=== PATIENT | male | born 1980 | race Caucasian/White ===

== ENCOUNTER 2020-09-03 12:57 | Emergency (ER) | payer SELFPAY ==
[2020-09-03 13:01] VITALS: BP 141/88; PULSE 86; RESP 18; TEMP 36.7; O2SAT 100; BMI 25.8
[2020-09-03 13:16] VITALS: BP 141/88; PULSE 86; RESP 18; O2SAT 100
--- NOTE | 2020-09-03 13:22 | XRR_ITS ---
PROCEDURE INFORMATION: Exam: XR Chest Exam date and time: 09/03/2020 1:23 PM Age: 39 years old Clinical indication: Chest pain; Type not specified TECHNIQUE: Imaging protocol: XR of the chest. Views: 1 view. COMPARISON: No relevant prior studies available. FINDINGS: Lungs: Unremarkable. No consolidation. Pleural spaces: Unremarkable. No pleural effusion. No pneumothorax. Heart/Mediastinum: Unremarkable. No cardiomegaly. Bones/joints: Unremarkable. Multiple scattered metallic soft tissue foreign bodies seen in the projection of the epigastric region and the left hemithorax. XR/XR chest 1V portable [id number] IMPRESSION: No acute findings. Metallic soft tissue foreign bodies epigastric and left hemithorax regions.
--- NOTE | 2020-09-03 13:24 | ED_ITS ---
HPI - Chest Pain General: Chief Complaint: Chest Pain Stated Complaint: CHEST PAIN Time Seen by Provider: 09/03/20 13:22 History of Present Illness: HPI narrative: 39-year-old male who started having left-sided arm pain just under his armpit last night around midnight while he was having sexual intercourse but he says his partner was on top and he was not in a push-up type position. He said his left arm felt heavy and felt pain in it and that he thought he had some left upper chest pain his cell phone was so he says he went and found the police and told him he was having chest pain but they arrested him for some marijuana paraphernalia instead. 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 Patient called EMS today they have given him aspirin and gave him 1 nitro and he says that made all the ringing in his ears go away he did have a brief stay in our waiting room by the time he was brought back to room he says all of his discomfort was gone. He denies any heaviness or pressure in his chest he mostly is complaining that his left arm and armpit were painful especially when he tried to lift them up over his head this is been ongoing now for over 12 hours and all symptoms are resolved he did have a little shortness of breath with it. And last night he took some K2 and some Dilaudid that he thought might help with his pain because it was a super aspirin Risk factors include smoking illicit drug use no family history he thinks he supposed to be on blood pressure medication but has not taken any in a while Review of Systems Narrative: General: denies fatigue, fever or chills HEENT: denies ear pain, denies nasal congestion, denies vision changes, denies sore throat Neck: denies masses or pain Resp: denies cough, denies shortness of breath, denies pleuritic pain Cardio: see HPI denies chest pain, denies edema GI: denies abdominal pain, denies N/V/D, denies black/tarry or bloody stools : denies hematuria, denies dysuria Neuro: denies headache, denies dizziness, denies motor or sensory changes Musculoskeletal: denies pain, denies swelling Skin: denies rashes Psych: denies SI or HI Endocrine: denies thyroid symptoms, denies lymphadenopathy all over ROS reviewed and patient [facility] Information: + daily tobacco use daily illicit drug use with meth and marijuiana Physical Exam Narrative: EXAM NARRATIVE: General: a/o/3, no distress Head: atraumatic HEENT: normal eyes, normal conjunctiva, normal hearing, normal external nose, normal mouth, mucous membranes moist Neck: FROM, trachea midline Chest: normal expansion, no gross deformities Resp: normal speech, no retractions, no accessory muscle use, CTA bilaterally Cardio: regular rate and rhythm and no murmur, no peripheral edema, normal peripheral pulses GI: soft, flat non tender, no guarding normal BS : deferred Musculoskeletal: FROM, no pain or gross deformities, patient moves his arm up over his head Neuro: a/o appropriate for age, no gross motor or sensory deficits, CN II-XII grossly intact, normal coordination, normal speech Skin: no rashes, multiple areas on his skin bilateral extremities and anterior posterior torso of picking that are similar to common findings with meth abuse none of them look infected Psych: cooperative, normal mood and effect Course Vital Signs: Vital signs: Vital Signs Temperature 98.0 F 09/03/20 13:01 Pulse Rate 96 09/03/20 14:19 Respiratory Rate 16 09/03/20 14:19 Blood Pressure 132/108 09/03/20 14:19 Pulse Oximetry 100 09/03/20 13:40 MDM - Chest Pain MDM Narrative: Medical decision making narrative: Patient has no current discomfort. His symptoms have been constant since midnight last night he has smoking is a risk factor he does use drug use however EKG looks to have no ST changes or elevation in his troponin was negative I feel we can discharge leanne ent encouraged him to follow-up Try discussing with the patient risk factors for coronary artery disease including blockages drug use atypical type chest pain and that he has risk factors of smoking the drug use as well as uncontrolled hypertension and that he really needs further work-up and/or testing patient says he is going to continue to use drugs and I explained to him he has high risks of coronary artery disease cardiomyopathies valvular disease and/or . Highly encouraged him to follow-up or return if further symptoms I do not feel patient will be compliant Medical Records: Attestation: I reviewed the patient's medical records. Lab Data: Attestation: I reviewed the patient's lab results. Labs: Lab Results 09/03/20 09/03/20 09/03/20 Range/Units 12:15 12:15 12:15 WBC 9.2 (4.0-10.0) 10^3/ uL RBC 4.91 (4.1-5.3) 10^6/u L Hgb 14.7 (11.7-16.6) g/dL Hct 44.4 (42.0-52.0) % MCV 90.4 (80-94) fL MCH 29.9 (28.0-34.0) pg MCHC 33.1 (30.0-36.0) g/dL RDW 12.9 (12.1-15.1) % Plt Count 223 (130-400) 10^3/c mm MPV 11.3 H (7.4-10.4) fL Neut % (Auto) 62.9 % Lymph % (Auto) 22.3 % Schuyler % (Auto) 11.2 % Eos % (Auto) 2.8 % Baso % (Auto) 0.4 % Neut # (Auto) 5.78 (1.8-7.7) 10^3/u L Lymph # (Auto) 2.1 (0.8-4.8) 10^3/u L Schuyler # (Auto) 1.0 H (0.2-0.9) 10^3/u L Eos # (Auto) 0.3 (0.0-0.8) 10^3/u L Baso # (Auto) 0.0 (0.0-0.1) 10^3/u L Nucleated RBC % (a uto) 0 % Nucleated RBCs # 0.0 /100WBC Sodium 141 (136-145) mmol/L Potassium 3.9 (3.5-5.1) mmol/L Chloride 104 (98-107) mmol/L Carbon Dioxide 29 (22-29) mmol/L Anion Gap 11.9 (5-19) BUN 17 (6-20) mg/dL Creatinine 0.8 (0.7-1.2) mg/dL GFR Calculation 106.5 (90-130) mL/min Glucose 61 L (65-115) mg/dL Calculated Osmolal ity 291 (285-295) mOsm/k g Calcium 9.1 (8.5-10.5) mg/dL Total Bilirubin 0.3 (0.15-1.2) mg/dL AST 34 (0-40) U/L ALT 33 (0-41) U/L Alkaline Phosphata se 64 (40-130) IU/L Creatine Kinase 418 H* (39-308) U/L Troponin T Baselin e 9 (0-15) ng/L Troponin T 120 Min [place] (0-15) ng/L Delta Troponin T (0-10) ABS# Total Protein 6.8 (6.6-8.7) g/dL Albumin 4.3 (3.5-5.2) g/dL Globulin 2.5 (1.3-4.6) g/dL 09/03/20 Range/Units 14:15 WBC (4.0-10.0) 10^3/ uL RBC (4.1-5.3) 10^6/u L Hgb (11.7-16.6) g/dL Hct (42.0-52.0) % MCV (80-94) fL MCH (28.0-34.0) pg MCHC (30.0-36.0) g/dL RDW (12.1-15.1) % Plt Count (130-400) 10^3/c mm MPV (7.4-10.4) fL Neut % (Auto) % Lymph % (Auto) % Schuyler % (Auto) % Eos % (Auto) % Baso % (Auto) % Neut # (Auto) (1.8-7.7) 10^3/u L Lymph # (Auto) (0.8-4.8) 10^3/u L Schuyler # (Auto) (0.2-0.9) 10^3/u L Eos # (Auto) (0.0-0.8) 10^3/u L Baso # (Auto) (0.0-0.1) 10^3/u L Nucleated RBC % (a uto) % Nucleated RBCs # /100WBC Sodium (136-145) mmol/L Potassium (3.5-5.1) mmol/L Chloride (98-107) mmol/L Carbon Dioxide (22-29) mmol/L Anion Gap (5-19) BUN (6-20) mg/dL Creatinine (0.7-1.2) mg/dL GFR Calculation (90-130) mL/min Glucose (65-115) mg/dL Calculated Osmolal ity (285-295) mOsm/k g Calcium (8.5-10.5) mg/dL Total Bilirubin (0.15-1.2) mg/dL AST (0-40) U/L ALT (0-41) U/L Alkaline Phosphata se (40-130) IU/L Creatine Kinase (39-308) U/L Troponin T Baselin e (0-15) ng/L Troponin T 120 Min [place] 7.60 (0-15) ng/L Delta Troponin T -1.40 L (0-10) ABS# Total Protein (6.6-8.7) g/dL Albumin (3.5-5.2) g/dL Globulin (1.3-4.6) g/dL EKG Data^: EKG 1: EKG interpretation date: 09/03/20 EKG interpretation time: 13:16 Interpretation: NSR, rate 88, no acute st changes RBBB, Left axis Discharge Plan Discharge Patient Disposition: Home Clinical Impression: Atypical chest pain Condition: Stable Prescriptions: No Action hydromorphone 4 mg Tablet 2 mg PO ONCE RF: 0 Discharge Orders: Discharge ED (Routine); Ordered 09/03/20 Ordered By: Michelle Hong Discharge Diet: Usual diet Patient Instructions: Chest Pain (ED) Activity Restrictions/Additional Instructions: Take a daily aspirin stop your drug use recommend he also stop smoking follow-up with your provider you will need further work-up and/or testing to determine a cause of your chest pain that may involve a stress test and/or ultrasound of your heart in the meantime return the emergency department for further chest discomfort left arm pain or numbness shortness of breath changes or worsening of symptoms Make sure you take your blood pressure medication Thank you for choosing [facility] for your healthcare needs today. Please realize this is an emergency room and that we are providing you with a medical screening exam and this may not be complete and all inclusive of all the testing and or work up that you may need to determine your ailment or severity of your illness. It is very important that you follow up as instructed or that you return to the Emergency Department should you have concerns or if your condition changes or worsens in any way. Coding Level of Care Code ED Regulatory Services Consultant for Chary Kearns
[2020-09-03 13:33] LABS: Basophils % 0.4 %; Eosinophils # 0.3 10^3/uL (0.0-0.8); Eosinophils % 2.8 %; Hematocrit 44.4 % (42.0-52.0); Hemoglobin 14.7 g/dL (11.7-16.6); Lymphocytes # 2.1 10^3/uL (0.8-4.8); Lymphocytes % 22.3 %; Mean Corpuscular HGB Conc 33.1 g/dL (30.0-36.0); Mean Corpuscular Hemoglobin 29.9 pg (28.0-34.0); Mean Corpuscular Volume 90.4 fL (80-94); Mean Platelet Volume 11.3 fL (7.4-10.4); Monocytes % 11.2 %; Neutrophils # 5.78 10^3/uL (1.8-7.7); Neutrophils % 62.9 %; Nucleated Red Blood Cells % 0 %; Platelet Count 223 10^3/cmm (130-400); Red Blood Count 4.91 10^6/uL (4.1-5.3); Red Cell Distribution Width 12.9 % (12.1-15.1); White Blood Count 9.2 10^3/uL (4.0-10.0)
[2020-09-03 13:40] VITALS: O2SAT 100
[2020-09-03 13:51] LABS: Troponin(5th) Baseline 9 ng/L (0-15)
[2020-09-03 13:55] LABS: Alanine Aminotransferase 33 U/L (0-41); Albumin Level 4.3 g/dL (3.5-5.2); Alkaline Phosphatase 64 IU/L (40-130); Anion Gap 11.9 (5-19); Aspartate Amino Transferase 34 U/L (0-40); Blood Urea Nitrogen 17 mg/dL (6-20); Calcium 9.1 mg/dL (8.5-10.5); Carbon Dioxide 29 mmol/L (22-29); Chloride 104 mmol/L (98-107); Creatinine Clr Calc Pharmacy 123.5513; Globulin 2.5 g/dL (1.3-4.6); Glomerular Filtration Rate 106.5 mL/min (90-130); Glucose 61 mg/dL (65-115); Osmolality Calculated 291 mOsm/kg (285-295); Potassium 3.9 mmol/L (3.5-5.1); Sodium 141 mmol/L (136-145); Total Bilirubin 0.3 mg/dL (0.15-1.2); Total Protein 6.8 g/dL (6.6-8.7)
[2020-09-03 14:00] LABS: Creatine Phosphokinase 418 U/L (39-308)
[2020-09-03 14:19] VITALS: BP 132/108; PULSE 96; RESP 16
[2020-09-03 15:56] VITALS: BP 132/85; PULSE 91; RESP 28
--- NOTE | 2020-09-03 16:09 | ECG_ITS ---
[facility] Test Date: 2020-09-03 Pat Name: Rene Jarrell Iii Department: Room: Gender: Male Resident Athletic Trainer: : 1980 Requested By: Michelle Villasenor Order Number: [id number] Alex MD: Meeta Hoffmann M.D. Measurements Intervals [place] Rate: 88 P: 37 MT: 164 QRS: -31 QRSD: 100 T: 54 QT: 372 QTc: 452 Interpretive Statements SINUS RHYTHM LEFT AXIS DEVIATION [QRS AXIS < -30] INCOMPLETE RIGHT BUNDLE BRANCH BLOCK [90+ ms QRS DURATION, TERMINAL R IN V1/V2, 40+ ms S IN I/aVL/V4/V5/V6] No previous ECG available for comparison Electronically Signed On 09-05-2020 9:35:14 CDT by Meeta Hoffmann M.D. [id number]
== END 2020-09-03 16:04 | disposition home or self-care (01) ==
PROVIDERS: Emergency Provider Emergency Medicine
DX: R07.89 Other chest pain (principal); F17.210 Nicotine dependence, cigarettes, uncomplicated
CPT/HCPCS: 36415; 71045; 80053; 82550; 84484; 85025; 93005; 99284

== ENCOUNTER 2021-04-13 22:54 | Emergency (ER) | payer SELFPAY ==
[2021-04-13 22:57] VITALS: BP 171/124; PULSE 80; RESP 18; TEMP 36.6; O2SAT 100; BMI 27.3
[2021-04-13 23:03] LABS: Add Urine Microscopic? NO; Charge for UA Resulting for Rev
[2021-04-13 23:06] LABS: Bilirubin Urine Neg (Negative); Blood Urine Neg (Negative); Glucose Urine UA Norm (Normal); Ketones Urine Negative (Negative); Leukocyte Esterase Urine Negative (Negative); Nitrate Urine Negative (Negative); Protein Urine Neg (Negative); Urine Appearance Clear (CLEAR); Urine Color Yellow (Yellow); Urobilinogen Urine Norm (Negative); pH Urine 6.5 (5-7)
[2021-04-13 23:15] LABS: Amphetamines Screen Urine Negative (Negative); Barbiturates Screen Urine Negative (Negative); Benzodiazepines Screen Urine Negative (Negative); Cocaine Screen Urine Negative (Negative); Opiate Screen Urine Negative (Negative); PCP Screen Urine Negative (Negative); THC Screen Urine Positive (Negative)
--- NOTE | 2021-04-14 05:46 | ED.C_ITS ---
HPI - Psych General: Chief Complaint: Psychiatric Symptoms Stated Complaint: SI Time Seen by Provider: 04/13/21 22:56 History of Present Illness: HPI Narrative: 40-year-old male who is evaluated in the hallway of the emergency department standing, as he is insisting on leaving. He does this after writing 45 miles in an ambulance from the [facility]. The report EMS gives us, is that he had made suicidal statements there, and is brought here for evaluation. The patient adamantly denies any suicidal ideation or statement history. He states I do not know where they got that . We have no affidavits written, and no court ordered 96-hour hold. Again the patient is evaluated in the hallway, as he is insistent upon leaving stating I know my rights, you should call the police. I do not have to stay here, I am not wanting to hurt myself or anyone else. I can leave when I want to. Clinically, he does not appear intoxicated. He gives no sign of psychosis. MD complaint: other Onset (ago): hour(s) History of same: No Relieving factors: none Review of Systems Narrative: Patient not cooperative Physical Exam Const: COMMON NORMALS: patient oriented x3 and alert GENERAL APPEARANCE: comfortable and well developed; not cooperative, not ill appearing and not frail appearing Neuro: [place] COMA SCALE: document GCS findings [place] coma scale eye opening: Spontaneous [place] coma scale verbal response: Orientated [place] coma scale motor response: Obey commands [place] coma scale total score: 15 COMMON NORMALS: patient oriented x3 SENSORIUM/ORIENTATION: Yes alert Course Vital Signs: Vital signs: Vital Signs Temperature 97.8 F 04/13/21 22:57 Pulse Rate 80 04/13/21 22:57 Respiratory Rate 18 04/13/21 22:57 Blood Pressure 171/124 04/13/21 22:57 Pulse Oximetry 100 04/13/21 22:57 MDM - Psych MDM Narrative: Medical decision making narrative: This is a nonintoxicated male who comes to us by EMS. The report is that he had made a suicidal statement. He denies this. There is no affidavit written to corroborate this story. He is obviously not a danger to himself or anyone else at this point, and essentially was malingering in the correction hoping to get out of having to stay. As he is not any of the above, legally we are not to hold this gentleman, and he was discharged from the emergency room straight to the parking lot. Lab Data: Labs: Lab Results 04/13/21 04/13/21 22:56 22:56 Urine Color Yellow (Yellow) Urine Appearance Clear (CLEAR) Urine pH 6.5 (5-7) Ur Specific Gravit y 1.030 (1.005-1.030) Urine Protein Neg (Negative) Urine Glucose (UA) Norm (Normal) Urine Ketones Negative (Negative) Urine Blood Neg (Negative) Urine Nitrate Negative (Negative) Urine Bilirubin Neg (Negative) Urine Urobilinogen Norm mg/dL mg/dL (Negative) Ur Leukocyte Munira ase Negative (Negative) Urine Opiates Scre en Negative ng/mL ng /mL (Negative) Ur Barbiturates Sc reen Negative ng/mL ng /mL (Negative) Ur Phencyclidine S crn Negative ng/mL ng /mL (Negative) Ur Amphetamines Sc reen Negative ng/mL ng /mL (Negative) U Benzodiazepines Scrn Negative ng/mL ng /mL (Negative) Urine Cocaine Scre en Negative ng/mL ng /mL (Negative) U Marijuana (THC) Screen Positive ng/mL H ng/mL (Negative) Discharge Plan Discharge Patient Disposition: Left Against Medical Advice Clinical Impression: Malingering Prescriptions: No Action hydromorphone 4 mg Tablet 2 mg PO ONCE RF: 0 Patient Instructions: Opioid Safety Coding Level of Care Code ED Senior Technical Program Manager for Chary Fwd Exam Expanded Problem Focused
== END 2021-04-13 23:20 | disposition left against medical advice (07) ==
PROVIDERS: Emergency Provider Emergency Medicine
DX: Z76.5 Malingerer [conscious simulation] (principal)
CPT/HCPCS: 80306; 81003; 99282

== ENCOUNTER 2021-09-11 21:31 | Inpatient (IN) | payer MEDICAID, SELFPAY ==
[2021-09-11 21:46] VITALS: BP 150/100; PULSE 110; RESP 16; TEMP 36.6; O2SAT 100; BMI 26.5
--- NOTE | 2021-09-11 21:50 | W.ED.GENADLT ---
HPI - General Adult General: Chief complaint: Psychiatric Symptoms Stated complaint: Psycological Problems Time Seen by Provider: 09/11/21 21:44 History of Present Illness: HPI: [40]yo patient w/ hx of marijuana and meth use presenting with SI. Patient tells hsi brother just shoot himself with a gun and he is very depressed and would do the same if he doesn't get help. On arrival, the patient is AAOx3 and cooperative with my evaluation. No focal complaints of chest pain, shortness of breath, palpitations, N/V, focal GI/ complaints. Currently denies HI. No complaints of hallucinations. Onset: acute Duration: ongoing Location: home Severity: severe Associated symptoms: Deny chest pain, dyspnea, nausea, rash, palpitations or vomiting Review of Systems Const: Denies: fever(s) or chills Eyes: Denies: change in vision ENMT: Denies: mouth pain Card: Denies: chest pain or palpitations Resp: Denies: dyspnea or non-productive cough GI: Denies: abdominal pain, nausea, vomiting or diarrhea : Denies: dysuria Musc: Denies: extremity pain Skin/Breast: Denies: rash or new lesions Neuro: Denies: weakness in extremities Psych: Reports: depression and suicidal ideation Zacarias/Lymph: Denies: easy bruising PFSH ED PFSH: Medical History No pertinent past medical history Social History (Updated 09/11/21 @ 22:08 by Joanna Garrett MD) Smoking and tobacco status: never smoked Alcohol intake: current Alcohol use comment: +marijuana/meth Substance/Drug Use: never Physical Exam Const: COMMON NORMALS: alert HENMT: COMMON NORMALS: atraumatic HEAD & SCALP: atraumatic MOUTH: moist mucous membranes not abnormal Eye: COMMON NORMALS: EOMs intact bilaterally and conjunctivae normal CONJUNCTIVA: Yes conjunctivae normal Neck/C-Spine: COMMON NORMALS: full ROM and supple Resp: COMMON NORMALS: normal respiratory effort and clear to auscultation bilaterally AUSCULTATION: clear to auscultation bilaterally Cardio: COMMON NORMALS: regular rate RATE: regular rate GI: COMMON NORMALS: Soft to palpation and non-tender PALPATION: Yes Soft to palpation Extremity: COMMON NORMALS: full ROM Neuro: SENSORIUM/ORIENTATION: Yes alert MOTOR EXAM: No Abnormal motor strength present and Other motor observations present (no focal motor deficits) Psych: COMMON NORMALS: speech normal SPEECH: Yes normal speech MOOD & AFFECT: Yes depressed mood Course Vital Signs: Vital signs: Vital Signs Temperature 97.8 F 09/11/21 21:46 Pulse Rate 110 H 09/11/21 21:46 Respiratory Rate 16 09/11/21 21:46 Blood Pressure 150/100 09/11/21 21:46 Pulse Oximetry 100 09/11/21 21:46 MDM - General Adult Medical Decision Making [40]yo patient w/ hx of meth and marijuana use presenting for SI and depression. HDS, exam within normal limit Thoughts are linear and organized, and the patient has no AH/VH, or HI. Clinically the patient displays no overt toxidrome; they are well appearing, with low suspicion for toxic ingestion given history and exam. Symptoms unlikely 2/2 anemia, hypothyroidism, infection, or ICH. Workup: CBC, CMP, Lipase, salicylate/tylenol, UDS Lab findings: wnl, +marijuana/meth in the urine On reassessment, labs and workup wnl. Patient is hemodynamically stable with no acute medical complaints. Case discussed with psychiatric provider Dr. Ritchie at [facility] psych inpatient with recommendation for admission Disposition: Psych Discharge Plan Discharge Clinical Impression: Depression with suicidal ideation Prescriptions: No Action hydromorphone 4 mg Tablet 2 mg PO ONCE 0RF Coding Level of Care Code ED Line Runner for Chg Fwd Exam Comprehensive
[2021-09-11 22:20] LABS: Basophils # 0.1 10^3/uL (0.0-0.1); Basophils % 0.5 %; Eosinophils # 0.2 10^3/uL (0.0-0.8); Eosinophils % 1.5 %; Hematocrit 42.9 % (42.0-52.0); Hemoglobin 14.3 g/dL (11.7-16.6); Lymphocytes # 1.6 10^3/uL (0.8-4.8); Lymphocytes % 16.2 %; Mean Corpuscular HGB Conc 33.3 g/dL (30.0-36.0); Mean Corpuscular Hemoglobin 29.7 pg (28.0-34.0); Mean Platelet Volume 10.6 fL (7.4-10.4); Monocytes # 0.6 10^3/uL (0.2-0.9); Monocytes % 6.1 %; Neutrophils # 7.55 10^3/uL (1.8-7.7); Neutrophils % 75.3 %; Nucleated Red Blood Cells % 0 %; Platelet Count 245 10^3/cmm (130-400); Red Blood Count 4.82 10^6/uL (4.1-5.3); Red Cell Distribution Width 12.8 % (12.1-15.1)
[2021-09-11 22:34] LABS: Alanine Aminotransferase 31 U/L (0-41); Albumin Level 4.4 g/dL (3.5-5.2); Alkaline Phosphatase 62 IU/L (40-130); Anion Gap 13.2 (5-19); Aspartate Amino Transferase 23 U/L (0-40); Blood Urea Nitrogen 9 mg/dL (6-20); Calcium 8.5 mg/dL (8.5-10.5); Carbon Dioxide 25 mmol/L (22-29); Chloride 105 mmol/L (98-107); Globulin 2.6 g/dL (1.3-4.6); Glucose 132 mg/dL (65-115); Lipase 21 U/L (13-60); Osmolality Calculated 289 mOsm/kg (285-295); Potassium 4.2 mmol/L (3.5-5.1); Sodium 139 mmol/L (136-145); Total Bilirubin 0.3 mg/dL (0.15-1.2)
[2021-09-11 22:37] VITALS: BP 154/108; PULSE 111; RESP 17; TEMP 36.8; O2SAT 99
[2021-09-11 22:59] LABS: Acetaminophen < 5.0 ug/mL (10-30); Salicylate < 0.3 mg/dL (3-10)
[2021-09-11 23:16] LABS: Alcohol Level < 10 mg/dL (0-10)
[2021-09-11 23:20] LABS: Amphetamines Screen Urine Positive (Negative); Barbiturates Screen Urine Negative (Negative); Benzodiazepines Screen Urine Negative (Negative); Cocaine Screen Urine Negative (Negative); Opiate Screen Urine Negative (Negative); PCP Screen Urine Negative (Negative); THC Screen Urine Positive (Negative)
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
[2021-09-12 06:00] VITALS: BP 138/96; PULSE 86; RESP 17; TEMP 36.6; O2SAT 99
--- NOTE | 2021-09-12 06:35 | W.PM.NPUH&PS ---
Providers/Chief Complaint Admitting Physician: Roger Ritchie MD Chief Complaint: Psycological Problems HPI NPU History of Present Illness Rene Jarrell is a 40 year old male admitted through our emergency department with the following report: HPI: [40]yo patient w/ hx of marijuana and meth use presenting with SI. Patient tells hsi brother just shoot himself with a gun and he is very depressed and would do the same if he doesn't get help. On arrival, the patient is AAOx3 and cooperative with my evaluation. No focal complaints of chest pain, shortness of breath, palpitations, N/V, focal GI/ complaints. Currently denies HI. No complaints of hallucinations. He was admitted to the neuropsychiatry unit for definitive treatment of these issues. He said that his brother just shot himself. His family has a very strong history of suicide. He says he has lost 32 relatives to suicide in his life. His mother of an overdose and they are not sure if it was intentional or accidental. The patient is a daily methamphetamine abuser as much as he can. He also smokes marijuana. Likely, he has been in custodial for the 18 years just getting out 2 years ago. He said he killed a bunch of people. He said that he is not a violent person but they just needed killing. He says that he was depressed before his brother killed himself. He says that many other people in his family have suicidal ideations but are not brave enough to pull the trigger. His biggest priority at this time is getting custody of his 6-month-old son. His mother has lost custody because of drug use. He has never seen his son. He understands that he needs to get off of methamphetamine if he is going to have his son. He wants treatment. He has a DFS worker and she wanted him to get treatment. Meds NPU Home Medications Medication Instructions Recorded Confirmed Last Taken Type No Known Home Medications 09/11/21 09/11/21 Unknown History Allergies Allergy/AdvReac Type Severity Reaction Status Date / Time Penicillins Allergy ALGY-Difficulty Verified 04/13/21 23:05 Breathing PFSH NPU PFSH: Medical History No pertinent past medical history Social History (Updated 09/11/21 @ 22:08 by Joanna Garrett MD) Smoking and tobacco status: never smoked Alcohol intake: current Alcohol use comment: +marijuana/meth Substance/Drug Use: never Mental Status Exam MSE Comments: This is an overweight 40-year-old who appears approximately his stated age and is in no acute distress. He is somewhat uncomfortable. He said several times he does not know how to talk to psychiatrist. He is dressed in hospital scrubs with fair grooming. psychomotor activity is normal. Speech is at a regular rate and rhythm, normal volume, good articulation, not pressured. Alert, oriented X3 Attention and concentration appears to be normal. Memory is intact Mood is depressed. Affect is mildly dysphoric, uncomfortable Thought process is logical and goal-directed. Thought content: Denies auditory and visual hallucinations. No delusions or paranoia are noted. Significant suicidal ideation. He says if he killed himself he would take a couple of other people with him that need killing. Fund of knowledge is probably below average. Insight and judgment appear to be poor. Impulse control is poor. Vitals/I&O/Wt Last Vital Signs Temp 97.8 F 09/12/21 06:00 Pulse 86 09/12/21 06:00 Resp 17 09/12/21 06:00 BP 138/96 09/12/21 06:00 Pulse Ox 99 09/12/21 06:00 Weight last 48 hrs Weight 83.915 kg Data NPU : 09/11/21 22:09 09/11/21 22:09 A&P Assessment and plan (1) Methamphetamine abuse: Status: Acute (2) Cannabis abuse: Status: Acute (3) Suicidal ideation: Status: Acute (4) Major depressive disorder: Status: Acute Plan This is a 40-year-old male who has spent most of his adult life in custodial who reports chronic suicidal ideation and methamphetamine abuse. Plan: 1. We will objective just on as needed medications for now. 2. Continue every 15 minute checks for safety. 3. Encourage individual, group and milieu therapies. 4. Encourage sober living treatment after discharge at the highest level of care to which he is willing to commit. 5. We will monitor for safety for himself in the community prior to discharge. 6. Social work will look for a treatment program and communicate with DFS. Involuntary Hold Information 96 Hour Hold: 96 Hour Involuntary Admission: No Attestations NPU Medical Necessity Statement*: Inpatient hospitalization is medically necessary and the clinically appropriate intervention at this time. We will initiate medications and make changes as indicated. He will be in the hospital for over 2 midnights. Likely length of stay 4-6 days Coding Level of Care Code Acute Assignment Manager for Chary Fwd Diagnoses Methamphetamine abuse F15.10 Cannabis abuse F12.10 Suicidal ideation R45.851 Major depressive disorder F32.9
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
[2021-09-12 14:00] VITALS: BP 151/81; PULSE 83; RESP 18; TEMP 36.6; O2SAT 98
[2021-09-12] MEDS: nicotine 2 mg Gum BUCCAL (20:26)
[2021-09-12 22:00] VITALS: BP 151/81; PULSE 83; RESP 18; TEMP 36.6; O2SAT 98
[2021-09-13 06:00] VITALS: BP 127/86; PULSE 79; RESP 19; TEMP 36.6; O2SAT 99
[2021-09-13] MEDS: nicotine 2 mg Gum BUCCAL ×3 (09:03→19:02)
[2021-09-13 14:00] VITALS: BP 143/88; PULSE 106; RESP 18; TEMP 36.4; O2SAT 90
--- NOTE | 2021-09-13 18:44 | W.PM.NPUPNS ---
Subjective NPU Subjective: Patient presents today reporting that he has had a fairly dramatic life. He reports that he had significant issues with addiction and is now focusing his life on his sobriety so that he can be a father/support to his 7-month-old son. He reports that at this point he is working with the treatment team to get connected with resources for treatment and sober living so that he will be able to take the necessary steps for wellness. We did briefly discussed medications and at this point he is not close to medications but he believes that his most important act is to stay sober and he is uncertain whether medications are necessary and he does not want to trade 1 drug for another. Medications: Medication Review Details: This is an obese white female with adequate dress, grooming and eye contact. No abnormal movements. Cooperative with exam in no acute distress. Speech was slightly increased rate and volume. Mood described as all right, affect congruent. Thought process organized, thought content: patient denies suicidal or homicidal ideation, there were no delusions reported or noted, he denied any auditory or visual hallucinations. Attention and concentration were intact and memory appeared reliable but none were formally tested. She?s alert and oriented times three. Insight and judgment appeared improving and impulse control appeared limited. Vitals/I&O/Wt Last Vital Signs Temp 97.6 F 09/13/21 14:00 Pulse 106 H 09/13/21 14:00 Resp 18 09/13/21 14:00 BP 143/88 09/13/21 14:00 Pulse Ox 90 09/13/21 14:00 Weight last 48 hrs Weight 83.915 kg Data NPU : 09/11/21 22:09 09/11/21 22:09 A&P Assessment and plan (1) Methamphetamine abuse: Status: Acute (2) Suicidal ideation: Status: Acute (3) Major depressive disorder: Status: Acute (4) Cannabis abuse: Status: Acute (5) Depression with suicidal ideation: Status: Acute Plan This is a 40-year-old male who has spent most of his adult life in group home who reports chronic suicidal ideation and methamphetamine abuse. Plan: 1.? We will observe on as needed medications for now. 2.? Continue every 15 minute checks for safety. 3.? Encourage individual, group and milieu therapies. 4.? Encourage sober living treatment after discharge at the highest level of care to which he is willing to commit. 5.? Social work will look for a treatment program and communicate with DFS. Involuntary Hold Information 96 Hour Hold: 96 Hour Involuntary Admission: No Attestations NPU Medical Necessity Statement*: Inpatient hospitalization is medically necessary and the clinically appropriate intervention at this time.? We will initiate medications and make changes as indicated.? Likely length of stay 3-5 days Coding Level of Care Code Acute Manager Engine for g Fwd Diagnoses Methamphetamine abuse F15.10 Suicidal ideation R45.851 Major depressive disorder F32.9 Cannabis abuse F12.10 Depression with suicidal ideation F32.A; R45.851
[2021-09-13 21:24] VITALS: BP 146/93; PULSE 104; RESP 16; TEMP 36.4; O2SAT 100
[2021-09-14 06:00] VITALS: BP 133/81; PULSE 88; RESP 16; TEMP 36.6; O2SAT 97
[2021-09-14] MEDS: nicotine 2 mg Gum BUCCAL ×4 (10:15→18:36)
[2021-09-14 14:00] VITALS: BP 126/87; PULSE 114; RESP 17; TEMP 36.4; O2SAT 95
--- NOTE | 2021-09-14 17:17 | W.PM.NPUPNS ---
Subjective NPU Subjective: Patient presents today reporting that he is doing okay. He still is somewhat lost as to what is clear plan is. We discussed the big reveal of whether or not he is the biological father of this child. Spent considerable time trying to identify an internal point of inspiration in the event that this is not his child. He struggled trying to identify that source but agreed to he needed to be prepared for either outcome. He reported eating and sleeping okay. Continues to deny interest in initiating any medication. Mental Status Exam MSE Comments: This is an overweight white male with adequate dress, grooming and eye contact. No abnormal movements. Cooperative with exam in no acute distress. Speech was slightly increased rate and volume. Mood described as a little anxious, affect congruent. Thought process organized, thought content: patient denies suicidal or homicidal ideation, there were no delusions reported or noted, he denied any auditory or visual hallucinations. Attention and concentration were intact and memory appeared reliable but none were formally tested. He?s alert and oriented times three. Insight and judgment appeared improving and impulse control appeared limited. Vitals/I&O/Wt Last Vital Signs Temp 98.4 F 09/14/21 21:15 Pulse 96 09/14/21 21:15 Resp 16 09/14/21 21:15 BP 124/85 09/14/21 21:15 Pulse Ox 99 09/14/21 21:15 Data NPU : 09/11/21 22:09 09/11/21 22:09 A&P Assessment and plan (1) Methamphetamine abuse: Status: Acute (2) Suicidal ideation: Status: Acute (3) Major depressive disorder: Status: Acute (4) Cannabis abuse: Status: Acute (5) Depression with suicidal ideation: Status: Acute Plan This is a 40-year-old male who has spent most of his adult life in nursing home who reports chronic suicidal ideation and methamphetamine abuse. Plan: 1.? We will observe on as needed medications for now. 2.? Continue every 15 minute checks for safety. 3.? Encourage individual, group and milieu therapies. 4.? Encourage sober living treatment after discharge at the highest level of care to which he is willing to commit. 5.? Social work will look for a treatment program and communicate with DFS. Involuntary Hold Information 96 Hour Hold: 96 Hour Involuntary Admission: No Attestations NPU Medical Necessity Statement*: Inpatient hospitalization is medically necessary and the clinically appropriate intervention at this time.? We will initiate medications and make changes as indicated.? Likely length of stay 2-4 days Coding Level of Care Code Acute Nutritionalist for g Fwd Diagnoses Methamphetamine abuse F15.10 Suicidal ideation R45.851 Major depressive disorder F32.9 Cannabis abuse F12.10 Depression with suicidal ideation F32.A; R45.851
[2021-09-14 21:15] VITALS: BP 124/85; PULSE 96; RESP 16; TEMP 36.9; O2SAT 99
[2021-09-15 06:00] VITALS: BP 144/86; PULSE 86; RESP 18; TEMP 36.7; O2SAT 98
[2021-09-15] MEDS: nicotine 2 mg Gum BUCCAL (13:44)
[2021-09-15 15:34] VITALS: BP 144/86; PULSE 86; RESP 18; TEMP 36.7; O2SAT 98
--- NOTE | 2021-09-15 15:37 | PC.NURSE ---
LEFT AMA PT BECAME MAD WHEN STAFF HAD TO CHECK BELONGINGS HIS SIGNIFICANT OTHER BROUGHT, DECIDED HE WANTED TO LEAVE [place]. PHYSICIAN WAS PRESENT FOR THE EPISODE.
--- NOTE | 2021-09-15 15:38 | W.PM.NPUDCS ---
Diagnoses at Discharge Discharge Diagnosis (1) Methamphetamine abuse: Status: Acute (2) Suicidal ideation: Status: Acute (3) Major depressive disorder: Status: Acute (4) Cannabis abuse: Status: Acute (5) Depression with suicidal ideation: Status: Acute Reason for Visit Reason for Visit: Psycological Problems Brief History: History of Present Illness Rene Jarrell is a 40 year old male admitted through our emergency department with the following report: HPI: [40]yo patient w/ hx of marijuana and meth use presenting with SI. Patient tells hsi brother just shoot himself with a gun and he is very depressed and would do the same if he doesn't get help. On arrival, the patient is AAOx3 and cooperative with my evaluation. No focal complaints of chest pain, shortness of breath, palpitations, N/V, focal GI/ complaints. Currently denies HI. No complaints of hallucinations. He was admitted to the neuropsychiatry unit for definitive treatment of these issues.? He said that his brother just shot himself.? His family has a very strong history of suicide.? He says he has lost 32 relatives to suicide in his life.? His mother of an overdose and they are not sure if it was intentional or accidental.? The patient is a daily methamphetamine abuser as much as he can.? He also smokes marijuana.? Likely, he has been in long-term for the 18 years just getting out 2 years ago.? He said he killed a bunch of people.? He said that he is not a violent person but they just needed killing.? He says that he was depressed before his brother killed himself.? He says that many other people in his family have suicidal ideations but are not brave enough to pull the trigger.? His biggest priority at this time is getting custody of his 6-month-old son.? His mother has lost custody because of drug use.? He has never seen his son.? He understands that he needs to get off of methamphetamine if he is going to have his son.? He wants treatment.? He has a DFS worker and she wanted him to get treatment. Hospital Course Hospital Course He slowly acclimated to the individual, group and milieu therapies provided. He had been doing fairly well but was refusing any medications. He was mostly working with the social work team to come to some resolution with this challenge with the child he is trying to determine if he fathered. Okay to discharge left AGAINST MEDICAL ADVICE secondary to being frustrated about the speed things moving and the fact that he did not get a picture of his son as soon as it arrived on the unit. He was unable to be reasonable about staying and in fact likely was getting into the urges to leave which had been present but diverted by him during his stay. He was able to contract for safety outside of the hospital prior to discharge. During the hospitalization, patient had routine laboratory studies which were within normal limits except for few outliers. Additionally there was a general medical evaluation which was also within normal limits and revealed no new acute processes. Discharge Summary: At the time of discharge, he denied psychosis or lethality. Mood and anxiety were well managed. Patient endorsed a plan to avoid all drugs of abuse and follow-up with the aftercare recommendations of the treatment team. Patient was evaluated and deemed to be absent credible lethality, and was a voluntary patient requesting to be discharged, so he was discharged. Involuntary Hold Information 96 Hour Hold: 96 Hour Involuntary Admission: No Mental Status Exam MSE Comments: This is an overweight white male in hospital scrubs with adequate grooming and eye contact. No abnormal movements. Mostly cooperative with exam in mild distress. Speech was slightly increased rate and volume. Mood described as upset, affect congruent. Thought process organized, thought content: patient denies suicidal or homicidal ideation, there were no delusions reported or noted, he denied any auditory or visual hallucinations. Attention and concentration were intact and memory appeared reliable but none were formally tested. He?s alert and oriented times three. Insight and judgment appeared limited and impulse control appeared limited. Discharge Data Studies Completed and Pending: Laboratory Results WBC 10.0 10^3/uL (4.0 -10.0) 09/11/21 22:09 RBC 4.82 10^6/uL (4.1 -5.3) 09/11/21 22:09 Hgb 14.3 g/dL (11.7-1 6.6) 09/11/21 22:09 Hct 42.9 % (42.0-52.0 ) 09/11/21 22:09 MCV 89.0 fl (80-94) 09/11/21 22:09 MCH 29.7 pg (28.0-34. 0) 09/11/21 22:09 MCHC 33.3 g/dL (30.0-3 6.0) 09/11/21 22:09 RDW 12.8 % (12.1-15.1 ) 09/11/21 22:09 Plt Count 245 10^3/cmm (130 -400) 09/11/21 22:09 MPV 10.6 fL (7.4-10.4 ) H 09/11/21 22:09 Neut % (Auto) 75.3 % 09/11/21 22:09 Lymph % (Auto) 16.2 % 09/11/21 22:09 [place] % (Auto) 6.1 % 09/11/21 22:09 Eos % (Auto) 1.5 % 09/11/21 22:09 Baso % (Auto) 0.5 % 09/11/21 22:09 Neut # (Auto) 7.55 10^3/uL (1.8 -7.7) 09/11/21 22:09 Lymph # (Auto) 1.6 10^3/uL (0.8- 4.8) 09/11/21 22:09 [place] # (Auto) 0.6 10^3/uL (0.2- 0.9) 09/11/21 22:09 Eos # (Auto) 0.2 10^3/uL (0.0- 0.8) 09/11/21 22:09 Baso # (Auto) 0.1 10^3/uL (0.0- 0.1) 09/11/21 22:09 Nucleated RBC % (a uto) 0 % 09/11/21 22:09 Nucleated RBCs # 0.0 /100WBC 09/11/21 22:09 Sodium 139 mmol/L (136-1 45) 09/11/21 22:09 Potassium 4.2 mmol/L (3.5-5 .1) 09/11/21 22:09 Chloride 105 mmol/L (98-10 7) 09/11/21 22:09 Carbon Dioxide 25 mmol/L (22-29) 09/11/21 22:09 Anion Gap 13.2 (5-19) 09/11/21 22:09 BUN 9 mg/dL (6-20) 09/11/21 22:09 Creatinine 0.8 mg/dL (0.7-1. 2) 09/11/21 22:09 GFR Calculation 106.0 mL/min (90- 130) 09/11/21 22:09 Glucose 132 mg/dL (65-115 ) H 09/11/21 22:09 Calculated Osmolal ity 289 mOsm/kg (285- 295) 09/11/21 22:09 Calcium 8.5 mg/dL (8.5-10 .5) 09/11/21 22:09 Total Bilirubin 0.3 mg/dL (0.15-1 .2) 09/11/21 22:09 AST 23 U/L (0-40) 09/11/21 22:09 ALT 31 U/L (0-41) 09/11/21 22:09 Alkaline Phosphata se 62 IU/L (40-130) 09/11/21 22:09 Total Protein 7.0 g/dL (6.6-8.7 ) 09/11/21 22:09 Albumin 4.4 g/dL (3.5-5.2 ) 09/11/21 22:09 Globulin 2.6 g/dL (1.3-4.6 ) 09/11/21 22:09 Lipase 21 U/L (13-60) 09/11/21 22:09 Salicylates < 0.3 mg/dL (3-10 ) L 09/11/21 22:09 Urine Opiates Scre en Negative ng/mL (N egative) 09/11/21 22:09 Acetaminophen < 5.0 ug/mL (10-3 0) L 09/11/21 22:09 Ur Barbiturates Sc reen Negative ng/mL (N egative) 09/11/21 22:09 Ur Phencyclidine S crn Negative ng/mL (N egative) 09/11/21 22:09 Ur Amphetamines Sc reen Positive ng/mL (N egative) H 09/11/21 22:09 U Benzodiazepines Scrn Negative ng/mL (N egative) 09/11/21 22:09 Urine Cocaine Scre en Negative ng/mL (N egative) 09/11/21 22:09 U Marijuana (THC) Screen Positive ng/mL (N egative) H 09/11/21 22:09 Ethyl Alcohol < 10 mg/dL (0-10) 09/11/21 22:09 Vitals: Last Vital Signs Temp 98.0 F 09/15/21 15:34 Pulse 86 09/15/21 15:34 Resp 18 09/15/21 15:34 BP 144/86 09/15/21 15:34 Pulse Ox 98 09/15/21 15:34 Discharge Plan Discharge Patient Disposition: Left Against Medical Advice Condition: Fair Prescriptions: No Action No Known Home Medications 0RF Discharge Orders: Discharge Order (Routine); Ordered 09/15/21 Ordered By: Marcelo Rivers Discharge Diet: Regular Discharge Activity: Resume usual activity Discharge Attestations NPU Time Spent in Discharge Care*: less than 30 min Specific Discharge Activities: Specific discharge activities: educating patient, discussing with correctional counselor/case manager/social workers/dc planners, documenting/other paperwork and evaluating patient/reviewing data Coding Level of Care Code Acute Chg DC note Diagnoses Methamphetamine abuse F15.10 Suicidal ideation R45.851 Major depressive disorder F32.9 Cannabis abuse F12.10 Depression with suicidal ideation F32.A; R45.851
== END 2021-09-15 15:30 | disposition left against medical advice (07) | DRG 881 ==
LOC: ER 21:44 → NP 09-13 11:36
PROVIDERS: Admitting Provider Psychiatry & Neurology Psychiatry; Emergency Provider Emergency Medicine; Visit Provider Psychiatry & Neurology Psychiatry
DX: F32.9 Major depressive disorder, single episode, unspecified (principal); R45.851 Suicidal ideations; F15.10 Other stimulant abuse, uncomplicated; F12.10 Cannabis abuse, uncomplicated; Z53.29 Procedure and treatment not carried out because of patient's decision for other reasons; Z81.8 Family history of other mental and behavioral disorders
CPT/HCPCS: 80053; 80306; 80307; 83690; 85025; 97165; 99285

== ENCOUNTER 2021-11-23 20:10 | Emergency (ER) | payer MEDICAID, SELFPAY ==
[2021-11-23 20:31] VITALS: BP 130/96; PULSE 99; RESP 18; TEMP 36.7; O2SAT 100; BMI 25.4
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
== END 2021-11-23 21:28 | disposition home or self-care (01) ==
PROVIDERS: Emergency Provider Emergency Medicine
DX: S06.0X9A Concussion with loss of consciousness of unspecified duration, initial encounter (principal); R51.9 Headache, unspecified; F17.210 Nicotine dependence, cigarettes, uncomplicated; Y00.XXXA Assault by blunt object, initial encounter
CPT/HCPCS: 70450; 99284

== ENCOUNTER → 2022-05-21 10:31 | Outpatient (BNVA) | payer BC, SELFPAY | PROVIDERS: Visit Provider Nurse Practitioner | DX: Z20.2 Contact with and (suspected) exposure to infections with a predominantly sexual mode of transmission (principal) | CPT/HCPCS: 81000; 86592; 87491; 87591 ==

== ENCOUNTER 2022-06-07 04:00 | Emergency (ER) | payer BC, MEDICAID, SELFPAY ==
[2022-06-07 04:01] VITALS: BP 156/108; PULSE 90; RESP 16; TEMP 36.3; O2SAT 100; BMI 25.8
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
[2022-06-07] MEDS: HYDROcodone-acetaminophen 5-325 mg Tablet 1 TAB PO (04:23)
== END 2022-06-07 05:06 | disposition home or self-care (01) ==
PROVIDERS: Emergency Provider Emergency Medicine
DX: S09.8XXA Other specified injuries of head, initial encounter (principal); F17.210 Nicotine dependence, cigarettes, uncomplicated; Y04.2XXA Assault by strike against or bumped into by another person, initial encounter
CPT/HCPCS: 70450; 70486; 72125; 73130; 99284

== ENCOUNTER 2023-08-12 19:47 | Emergency (ER) | payer SELFPAY ==
[2023-08-12 19:48] VITALS: BP 152/106; PULSE 87; RESP 15; TEMP 36.4; O2SAT 97; BMI 25.1
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
[2023-08-12 21:11] VITALS: BP 161/111; PULSE 64; RESP 16; O2SAT 100
[2023-08-12 21:45] VITALS: BP 158/110; PULSE 75; RESP 18; O2SAT 100
== END 2023-08-12 22:01 | disposition home or self-care (01) ==
PROVIDERS: Emergency Provider Internal Medicine
DX: S02.40DA Maxillary fracture, left side, initial encounter for closed fracture (principal); S20.222A Contusion of left back wall of thorax, initial encounter; S00.83XA Contusion of other part of head, initial encounter; Z72.0 Tobacco use; Y00.XXXA Assault by blunt object, initial encounter; S00.81XA Abrasion of other part of head, initial encounter
CPT/HCPCS: 70486; 71100; 99284